=== PATIENT | male | born 1940 | race Caucasian/White ===

== ENCOUNTER 2018-01-27 03:40 | Inpatient (IN) | payer OTHER, MEDICARE ==
[~2018-01-27] VITALS: Ht 180.3 cm; Wt 77.1 kg
[~2018-01-27 03:40] MED LIST: LAMICTAL200 M1 PO; MULTIVITAMINS1 EAC2
--- NOTE | 2018-01-27 11:22 | Admission Core Measures ---
Acute Coronary Syndrome (CM) ACS Core Measures Acute Coronary Syndrome Diagnosis No Congestive Heart Failure (NEW) CHF Core Measures Congestive Heart Failure Diagnosis No Cerebrovascular Accident CVA Core Measures CVA/TIA Diagnosis No Venous Thromboembolism VTE Core Sherman (View Protocol) VTE Risk Factors Surgery No Mechanical VTE Prophylaxis d/t N/A MechProphylax Ordered No VTE Pharm Prophylaxis d/t NA PharmProphylax ordered Problem List As ranked by this Provider includes Assessment & Plan 1. Unilateral primary osteoarthritis, left hip HOME MEDS Home Med List Lamotrigine (Lamictal) 200 MG TABLET 1 TAB PO BID SEIZURE (Reported)
[2018-01-27] MEDS ORDERED: MIRALAX17 G1 PO (11:24)
[2018-01-27] MEDS ORDERED: ASPIRIN EC81 M1 PO (11:24)
[2018-01-27] MEDS ORDERED: DILAUDID2 M1 PO (11:24)
[2018-01-27] MEDS ORDERED: COLACE100 M1 PO (11:24)
[2018-01-27] MEDS ORDERED: MS CONTIN15 M3 PO (11:24)
[2018-01-27] MEDS ORDERED: PRILOSEC OTC20 M1 PO (11:24)
--- NOTE | 2018-01-27 11:32 | Patient Discharge Instructions ---
Discharge Instructions General Discharge Information You were seen/treated for: Left hip pain realted to unilateral primary osteoarthritis You had these procedures: Left total hip replacement Watch for these problems: Increasing pain despite the use of pain medication Increasing redness, warmth or swelling Drainage of any type from incision Inability to bear weight on operative leg Persistent nausea and vomiting Fever greater than 101.5 degrees Do not soak the wound: Yes No bath, but you may shower: Yes Other wound care: Please keep wound clean and dry. No ointments or lotions of any type on or near incision at any time. No exceptions. Your dressing will be changed by your nurse on the second day after your surgery. Daily dry dressing changes are recommended each day thereafter. Do not soak your wound in a bath or pool at any time until otherwise indicated by your surgeon. You may shower, please dry wound immediately after shower with a clean towel. Special Instructions: Aspirin: You are taking this medication to help prevent blood clot formation. Please take with food to protect your stomach lining. Please take as directed. Constipation: Pain medication can cause constipation. Your surgeon has recommended that you take Colace and miralax each day. You may discontinue this medication if you develop loose stool or diarrhea. If you wish to continue this medication, it is available over the counter. If you are unable to move your bowels after several days, if you are unable to pass gas and are developing bloating, nausea, or vomiting as a result, please contact your doctor. Activity Full Activity/No Limits: No Activity Self Limited: Yes Pounds, do NOT lift more than: 10 Acute Coronary Syndrome Inclusion Criteria At DC or during hospital stay patient has or had the following: ACS DIAGNOSIS No Discharge Core Measures Meds if any: Prescribed or Continued at Discharge Meds if any: NOT Prescribed or Continued at Discharge Congestive Heart Failure Inclusion Criteria At DC or during hospital stay patient has or had the following: CHF DIAGNOSIS No Discharge Core Measures Meds if any: Prescribed or Continued at Discharge Meds if any: NOT Prescribed or Continued at Discharge Cerebrovascular accident Inclusion Criteria At DC or during hospital stay patient has or had the following: CVA/TIA Diagnosis No Discharge Core Measures Meds if any: Prescribed or Continued at Discharge Meds if any: NOT Prescribed or Continued at Discharge Venous thromboembolism Inclusion Criteria VTE Diagnosis No VTE Type NONE VTE Confirmed by (Test) NONE Discharge Core Measures - Per Current guidelines, there needs to be overlap - treatment for the first 5 days of Warfarin therapy. - If discharged on Warfarin prior to 5 days of - overlap therapy, the patient will need to be - assessed for post discharge needs including - *Post discharge parental anticoagulation - *Warfarin and/or parental anticoagulation education - *Follow up date to check INR post discharge At least 5 days overlap therapy as Inpatient No Meds if any: Prescribed or Continued at Discharge Note: Overlap Therapy is Warfarin and Anticoagulant Meds if any: NOT Prescribed or Continued at Discharge
--- NOTE | 2018-01-27 11:34 | Surgical Discharge Summary ---
Visit Information Visit Dates Admission Date: 01/27/18 Discharge Date: 01/27/18 History of Present Illness Chief Complaint: Left hip pain related to unilateral primary osteoarthritis Surgical History Pertinent Surgical History: non-contributory Review of Systems: See H&P Hospital Course Course Attending Physician: Garret Goff MD [facility]: Patient was admitted to the hospital for an elective total joint replacement. The procedure was tolerated well and patient was transferred to a general surgical floor. Diet was advanced and tolerated. The patient was evaluated and treated by physical therapy. At the time of hospital discharge, the vital signs were stable, neurovascular status was intact, and pain was controlled with the use of oral pain medications. Allergies: Coded Allergies: No Known Allergies (01/25/18) Disposition Summary Disposition Principal Diagnosis: Left hip unilateral primary osteoarthritis Additional Diagnosis: None Discharge Disposition: home health services Discharge Instructions General Discharge Information Code Status: Full Code Patient's Diet: Regular, advance as tolerated Patient's Activity: WBAT Follow-Up Instructions/Appts: Follow up with Dr. Goff in 6 weeks from date of surgery. Please call office to arrange &/or confirm this appointment. Medications at Discharge Discharge Medications: Continue taking these medications: Lamotrigine (Lamictal) 200 MG TABLET 1 Tablet ORAL TWICE DAILY Comments: NOT GIVEN THIS ADMISSION Multivit With Calcium,Iron,Min (Multivitamins O-[id number]) 1 EACH TABLET Comments: NOT GIVEN THIS ADMISSION Start taking the following new medications: Aspirin (Ecotrin*) 81 MG TABLET. 1 Tablet ORAL TWICE DAILY Qty = 60 No Refills Comments: NOT GIVEN THIS ADMISSION Docusate Sodium (Colace) 100 MG CAPSULE 1 Capsule ORAL TWICE DAILY Qty = 14 No Refills Instructions: DISCONTINUE USE IF YOU DEVELOP LOOSE STOOL OR DIARRHEA Comments: NOT GIVEN THIS ADMISSION Polyethylene Glycol 3350 (Miralax) 17 GRAM POWD.PACK 1 Packet ORAL DAILY Qty = 7 No Refills Instructions: dissolve in water, DISCONTINUE USE IF YOU DEVELOP LOOSE STOOL OR DIARRHEA Comments: NOT GIVEN THIS ADMISSION Omeprazole Magnesium (Prilosec Otc) 20 MG TABLET. 1 Tablet ORAL DAILY Qty = 30 No Refills Comments: NOT GIVEN THIS ADMISSION Hydromorphone HCl (Dilaudid) 2 MG TABLET 1-2 Tablet ORAL EVERY 4-6 HOURS NEEDED as needed for PAIN Qty = 36 No Refills Comments: NOT GIVEN THIS ADMISSION Morphine Sulfate (Ms Contin) 15 MG TABLET.ER 1 Tablet ORAL TWICE DAILY Qty = 6 No Refills Comments: NOT GIVEN THIS ADMISSION
[2018-01-27 12:11] VITALS: BP 132/82
--- NOTE | 2018-01-27 12:21 | RADIOLOGY REPORT ---
EXAMINATION: XR HIP, LEFT CLINICAL INFORMATION: Status post left total hip replacement. COMPARISON: None TECHNIQUE: Two views of the left hip. FINDINGS: Hip joint is not adequately assessed on the crosstable lateral view. Based on the AP view, anatomic alignment of the total left hip arthroplasty is seen with no evidence of hardware failure or [place] ira bone fracture. Postsurgical changes with mild soft tissue emphysema seen. Mild degenerative changes partially included in lower lumbar spine. IMPRESSION: Anatomic alignment status post total left hip arthroplasty with no evidence of hardware failure or [place] ira bone fracture seen.
--- NOTE | 2018-01-27 13:37 | PN- Orthopedic ---
Subjective Subjective: No complaints, minimal hip pain, feels well, has been up and ambulatory, perform stairs without difficulty, wants to go home today Objective Vital Signs and I&Os Vital Signs Date Time Temp Pulse Resp B/P B/P Pulse O2 O2 Flow FiO2 Mean Ox Delivery Rate 01/27 1244 96.0 01/27 1243 94.9 01/27 1211 63 18 132/82 93 Room Air Intake & Output 01/27 0801/27 0000 01/26 0801/26 0000 Intake Total Output Total Balance Patient 170 lb Weight Weight Reported by Patient Measurement Method Physical Exam: Well-developed well-nourished no apparent distress. HEENT: Atraumatic, extraocular motion intact Neck: Supple, no lymphadenopathy Respiratory: No respiratory distress Extremities: No edema Left lower extremity hip dressing in place, Dressing clean dry and intact Mild thigh swelling No signs of infection. No shortening or rotation Hip range of motion is limited and without unexpected pain Neurovascularly intact distally Bilateral calves are supple, nontender. Neuro: Alert and oriented x3 Psych: Mood affect normal, normal memory normal judgment. Skin: Warm and dry, no rash on exposed skin Results Recent Imaging Studies: Postoperative x-rays of the left hip within normal limits Assessment/Plan Assessment/Plan Postop day #0 status post left total hip arthroplasty anterior approach Perioperative antibiotics. Pain medication as needed. Out of bed Patient did well with physical therapy, weightbearing as tolerated IV fluids until discharged Regular diet Aspirin for DVT prophylaxis ALPS for DVT prophylaxis Regular home meds Dressing change postop day 2 Plan for discharge home today with VNA services Core Measures Venous Thromboembolism VTE Risk Factors Surgery No Mechanical VTE Prophylaxis d/t N/A MechProphylax Ordered No VTE Pharm Prophylaxis d/t NA PharmProphylax ordered
[2018-01-27 15:18] VITALS: BP 134/76
--- NOTE | 2018-01-27 17:46 | Operative Report ---
Operative/Inv Procedure Report Surgery Date: 01/27/18 Name of Procedure: Left total hip replacement Pre-Operative Diagnosis: Primary left hip DJD Post-Operative Diagnosis: Same Estimated Blood Loss: 250 Surgeon/Program Engagement Director: Shell OCHOA,Garret Trejo Anesthesia: block Operative/Procedure Note Note: Description of Procedure: The patient was taken to the operating room and positively identified. After induction of spinal anesthesia and administration of appropriate pre-operative antibiotics, the patient was positioned supine on the operating room table and all bony prominences were well padded. After performing a surgical timeout, the left lower extremity was prepped and draped in the usual sterile fashion. A direct anterior approach was made to the left hip. The incision was carried sharply through superficial soft tissues to the level of the fascia. Meticulous hemostasis was maintained with Bovie electocautery. The fascia over the tensor fascia elmer muscle was opened sharply and the interval between the TFL and the sartorius was entered bluntly taking care to stay lateral to the lateral femoral cutaneous nerve. Retractors were placed around the femoral neck and the pericapsular fat was identified. The ascending branches of the lateral femoral circumflex vessels were identified and carefully coagulated. The pericapsular fat and anterior capsule were then resected. A napkin ring osteotomy was performed and the femoral head was removed without difficulty. Attention was then turned to the acetabulum. After appropriate placement of retractors, the acetabulum was exposed. Soft tissue was cleaned from the acetabular margin and notch. Overhanging osteophytes were removed and the teardrop was exposed. The acetabulum was then sequentially reamed to accept a 56 mm [employer] [place] T[employer] hemispherical solid shell. This was impacted into place in the appropriate position and fitted with a 36 mm Trident X3 zero degree polyethylene insert. Attention was then turned to the femur. After performing the appropriate ligament releases, the proximal femur was exposed. It was then sequentially broached to accept a size 5 Sofi Accolade 2 stem. This was trialed for leg length and stability. The trial component was removed and the final component was impacted into place. The trunnion was carefully cleaned and fit with a 36 mm, +0 Biolox delta ceramic femoral head. The hip was reduced and put through a full range of motion and found to be stable. The articular space was then irrigated with sterile saline. The periarticular soft tissues were infilitrated with Marcaine. The fascial layer was closed with interrupted #1 vicryl suture and the skin was re-approximated with interrupted 2 -0 vicryl. The skin was closed with a running 3-0 V-Lock suture. Steri-strips and a sterile dressing were applied. The patient was awakened and taken to the recovery room in satisfactory condition.
== END 2018-01-27 16:19 | disposition home health service (06) | DRG 470 ==
LOC: SDA 03:40 → CANRESERV 11:02 → ENRESERV 11:02 → ENTRNSPT 11:23 → EDTRNSPT 11:41 → EDTRNSPTSTS 11:41 → 2NB 12:03 → CMPTRNSPT 12:05 → ENTRNSPT 16:17 → 2NB 16:19 → EDTRNSPTSTS 16:44 → EDTRNSPT 16:44 → CMPTRNSPT 17:05
PROC: 0SRB04A Replacement of Left Hip Joint with Ceramic on Polyethylene Synthetic Substitute, Uncemented, Open Approach (ICD-10-PCS; principal; 2018-01-27)
DX: M16.12 Unilateral primary osteoarthritis, left hip (principal); G40.909 Epilepsy, unspecified, not intractable, without status epilepticus; Z96.651 Presence of right artificial knee joint
CPT/HCPCS: 2NBSP; 73502-LT; 97116-GO; 97161-GP; J0131; J0690; J0735; J2405; J2550; J3490; J7042